=== PATIENT | female | born 1970 | race Caucasian/White ===

== ENCOUNTER 2016-04-22 18:26 | Emergency (ER) | payer MEDICARE, OTHER ==
[~2016-04-22] VITALS: Ht 162.6 cm; Wt 60.5 kg
[~2016-04-22 18:26] MED LIST: DEXT10TA9 PO; METH10OR12 PO; TEMA30CA PO; VALIUM PO; [UNRECOGNIZED DRUG - CODE] PO
[2016-04-22 19:22] VITALS: Ht 162.6 cm; Wt 60.5 kg
[2016-04-22] MEDS ORDERED: LIDOCAINE 1%/EPI (MDV) 20 ML INJ INJ STA (22:55)
[2016-04-22] MEDS ORDERED: CEPH-443 PO (23:21)
[2016-04-22] MEDS ORDERED: BACTDS PO (23:21)
[2016-04-22] MEDS ORDERED: HYDR-906 PO (23:21)
--- NOTE | 2016-04-22 23:23 | ERD ---
ER Documentation Chief Complaint Date/Time DATE: 04/22/16 TIME: 23:22 Chief Complaint wound abscess right buttocks HPI Patient is a 45-year-old female who presents with an area of redness and swelling to her right superior buttocks for 3-4 days. Area is getting larger and more swollen and she states today it started draining pus. She denies any fevers or chills. Pain is 9 out of 10. Patient does admit to IV drug use. ROS All systems reviewed and are negative except as per history of present illness. Medications Home Meds Active Scripts Hydrocodone/Acetaminophen (Allison 5-325 Tablet) 1 Each Tablet, 1 TAB PO Q6H Y for PAIN, #20 TAB Prov:ANN KESSLER PA-C 04/22/16 Cephalexin* (Keflex*) 500 Mg Capsule, 500 MG PO QID for 7 Days, CAP Prov:ANN KESSLER PA-C 04/22/16 Sulfamethoxazole-Trimethoprim* (Bactrim* DS) 800-160 Mg Tab, 1 TAB PO DAILY for 7 Days, TAB Prov:ANN KESSLER PA-C 04/22/16 Reported Medications [Valium] No Conflict Check, MG PO Y 11/25/12 Methadone Hcl (Methadone Hcl) 10 Mg/Ml Oral.conc, 50 MG PO BID 10/22/12 Temazepam* (Temazepam*) 30 Mg Capsule, 1 TAB PO QHS 02/18/12 Amphet Dii-Aklqtf-R-Amphet (Adderall) 10 Mg Tablet, 1 TAB PO QID PRN 02/18/12 Alprazolam* (Xanax* XR) 2 Mg Tabsr, 1 TAB PO TID Y 02/18/12 Allergies Allergies: Coded Allergies: NSAIDS (Non-Steroidal Anti-Inflamma (Verified Allergy, Severe, ANAPHYLAXIS , 08/30/13) aspirin (Verified Allergy, Unknown, 08/30/13) Uncoded Allergies: NSAIDS (Allergy, Unknown, 08/30/13) PMhx/Soc Anesthesia Reaction: No Hx Neurological Disorder: No Hx Respiratory Disorders: No Hx Cardiac Disorders: No Hx Psychiatric Problems: Yes (ANXIETY) Hx Alcohol Use: No Hx Substance Use: Yes Hx Tobacco Use: Yes Smoking Status: Current every day smoker FmHx Family History: No diabetes Physical Exam Vitals Vital Signs Date Time Temp Pulse Resp B/P Pulse Ox O2 Delivery O2 Flow Rate FiO2 2/8/17 19:22 99.0 92 20 140/70 98 Physical Exam General: well developed, well nourished, alert, nontoxic, no distress Head: normocephalic, atraumatic Neck: Supple, nontender, no lymphadenopathy, no midline tenderness Respiratory: Clear to auscaultation bilaterally, speaks in full sentences, no use of accesory muscles or labored breathing, no rales, ronchi, or wheezing Cardiovascular: RRR, No murmurs GI: soft, non tender, non distended, negative murphys sign, negative mcburneys point tenderness, no cva tenderness bilaterally, no rebound or guarding Skin: Right superior buttocks has a large area of erythema and induration approximately 7 cm in diameter with mild active drainage, tender to palpation Results 24 hrs Current Medications Medications (Trade) Dose Ordered Sig/Maya Route PRN Reason Start Time Stop Time Status Last Admin Dose Admin Lidocaine/ Epinephrine (Xylocaine 1%/ Epi (Mdv) 20 ml) 20 ml ONCE STAT INJ 04/22/16 22:55 04/22/16 22:56 DC Procedures/MDM 45-year-old female presents with abscess. The area was prepped with Betadine and then 1% lidocaine was used to anesthetize the wound. A small incision using an 11 blade was then made and copious amounts of drainage was drained. Patient tolerated the procedure well and there were no complications. Wound was appropriately dressed and bandaged and patient was discharged with Bactrim, Keflex, and Allison for pain control. Recommended 2 day wound check follow-up. Recommended this patient follow up with her primary care doctor within 48 hours or return to the emergency room for any worsening of symptoms. However this time I do believe there is suitable for outpatient management. I answered all their questions and they agreed with the plan and were discharged home. Departure Diagnosis: Primary Impression: Abscess Condition: Stable Patient Instructions: Abscess, Incision And Drainage Additional Instructions: Call your primary care doctor TOMORROW for an appointment during the next 1-2 days.See the doctor sooner or return here if your condition worsens before your appointment time. ANN KESSLER PA-C Apr 22, 2016 23:23
[2016-04-22 23:53] VITALS: BP 132/66; PULSE 94; RESP 17; TEMP 100
[2016-04-23] MEDS ORDERED: HYDROCODONE/APAP (10/325) TAB PO ONE
== END 2016-04-22 23:53 | disposition home or self-care (01) ==
LOC: FTE 18:26
DX: L02.31 Cutaneous abscess of buttock (principal); F17.210 Nicotine dependence, cigarettes, uncomplicated

== ENCOUNTER 2017-09-03 16:52 | Emergency (ER) | END 2017-09-03 19:38 | disposition home or self-care (01) ==

== ENCOUNTER 2017-12-30 07:42 | Emergency (ER) | END 2017-12-30 09:16 | disposition home or self-care (01) ==